=== PATIENT | female | born 1975 | race American Indian/Alaskan Native ===

== ENCOUNTER 2020-04-05 15:48 | Observation (INO) | payer MEDICAID ==
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
[2020-04-05 17:53] LABS: Basophils % (Auto) 0.1 % (0.0-1.8); Eosinophils % (Auto) 0.1 % (0.0-4.3); Hematocrit 24.1 % (30.3-42.9); Lymphocytes % (Auto) 23.2 % (13.4-35.0); Mean Corpuscular HGB Conc 33 % (30-34); Mean Corpuscular Volume 106 fl (79-97); Monocytes # (Auto) 0.5 K/mm3 (0.0-0.8); Monocytes % (Auto) 6.2 % (0.0-7.3); Platelet Count 247 K/mm3 (140-440); Red Blood Count 2.26 M/mm3 (3.65-5.03)
[2020-04-05 18:06] LABS: Red Cell Distribution Width 24.5 % (13.2-15.2)
[2020-04-05 18:19] LABS: Blood Urea Nitrogen 4 mg/dL (7-17); Calcium 6.1 mg/dL (8.4-10.2); Hemolysis Index 83
[2020-04-05 18:20] LABS: BUN/Creatinine Ratio 10
[2020-04-05] MEDS ORDERED: SODIUM CHLORIDE 0.9% 1000 ML 1,000 ML IV ONE (20:15)
[2020-04-05] MEDS ORDERED: CYCLOBENZAPRINE 10 MG TAB PO ONE (20:45)
[2020-04-06] MEDS ORDERED: SODIUM CHLORIDE 0.9% 1000 ML 1,000 ML ONE (01:34)
[2020-04-06] MEDS ORDERED: SODIUM CHLORIDE 0.9% 1000 ML 1,000 ML IV ONE (01:36)
[2020-04-06] MEDS ORDERED: ONDANSETRON 4 MG/2 ML INJ IV PRN (02:12)
[2020-04-06] MEDS ORDERED: MAGNESIUM HYDROXIDE (MOM) ORAL LIQD UDC PO PRN (02:12)
[2020-04-06] MEDS ORDERED: SODIUM CHLORIDE 0.9% 1000 ML 1,000 ML IV SCH (02:15)
--- NOTE | 2020-04-06 02:26 | History and Physical Report ---
History of Present Illness Date of examination: 04/06/20 Date of admission: 04/06/2020 Chief complaint: Dizziness and Fall History of present illness: 44-year-old female presenting to the emergency room today complaining of dizziness and subsequently having a fall to the ground earlier today. Patient denies any loss of consciousness and denies any head injury. Denies any fever or chills, no nausea vomiting, no diarrhea, no hematuria or dysuria. Patient was admitted to [facility] for similar episode about a week ago. She was said to have been anemic and received about 3 to 4 units of blood at that time. She also had a an EGD and also colonoscopy within the past 1 week and was said to be within normal limits. Patient was just discharged about 2 to 3 days ago. Patient however indicates that she has been having heavy menstrual periods and she is currently menstruating. She denies any history of uterine fibroid. She has not followed up with any wedger and gluer lately. Work-up in the emergency room today reveals hemoglobin of 8 and hematocrit of 24.1. She could have less stent while in the emergency room because of dizziness. Patient has been admitted for her dizziness with probable symptomatic anemia. Past History Past Medical History: other (Anemia) Past Surgical History: No surgical history Social history: smoking (Formaer smoker) Family history: other (Mother had Lung ca. Grand mother had D/Mellitus ) Medications and Allergies Allergies Allergy/AdvReac Type Severity Reaction Status Date / Time No Known Allergies Allergy Verified 04/06/20 01:37 Active Meds: Active Medications Acetaminophen (Tylenol) 650 mg PO Q4H PRN PRN Reason: Pain MILD(1-3)/Fever >100.5/PARDO Sodium Chloride (Nacl 0.9% 1000 Ml) 1,000 mls @ 999 mls/hr IV ONCE ONE Stop: 04/06/20 02:36 Last Admin: 04/06/20 01:42 Dose: 999 mls/hr Documented by: Sodium Chloride (Nacl 0.9% 1000 Ml) 1,000 mls @ 125 mls/hr IV DIRECT DIEGO Magnesium Hydroxide (Milk Of Magnesia) 30 ml PO Q4H PRN PRN Reason: Constipation Ondansetron HCl (Zofran) 4 mg IV Q8H PRN PRN Reason: Nausea And Vomiting Sodium Chloride (Sodium Chloride Flush Syringe 10 Ml) 10 ml IV BID DIEGO Sodium Chloride (Sodium Chloride Flush Syringe 10 Ml) 10 ml IV PRN PRN PRN Reason: LINE FLUSH Review of Systems Constitutional: no fever, no chills Ears, nose, mouth and throat: no nasal congestion, no sore throat Cardiovascular: no chest pain, no palpitations Respiratory: no cough, no shortness of breath Gastrointestinal: no abdominal pain, no nausea, no vomiting, no diarrhea, no coffee ground emesis, no BRBPR, no melena Genitourinary Female: menorrhagia, no pelvic pain, no dysuria, no hematuria Menstruation: period heavy Musculoskeletal: no neck pain, no low back pain Integumentary: no rash, no pruritis Neurological: no headaches, no confusion Psychiatric: no anxiety, no depression Exam - Constitutional Vitals: Temp Pulse Resp BP Pulse Ox 88 18 118/66 100 04/05/20 18:21 04/05/20 18:21 04/06/20 00:34 04/05/20 20:00 General appearance: Present: no acute distress, well-nourished, obese, other (Moderately pale) - EENT Eyes: Present: PERRL, EOM intact. Absent: scleral icterus ENT: hearing intact, clear oral mucosa, dentition normal - Neck Neck: Present: supple, normal ROM - Respiratory Respiratory effort: normal Respiratory: bilateral: CTA - Cardiovascular Rhythm: regular Heart Sounds: Present: S1 & S2, gallop. Absent: systolic murmur, diastolic murmur, rub - Extremities Extremities: no ischemia, pulses intact, pulses symmetrical, No edema, Full ROM Peripheral Pulses: within normal limits - Abdominal General gastrointestinal: Present: soft, non-tender, distended, normal bowel sounds. Absent: mass HEART Score - HEART Score Troponin: Troponin T < 0.010 ng/mL (0.00-0.029) 04/05/20 17:28 Results - Labs CBC & Chem 7: 04/05/20 17:28 04/05/20 17:28 Labs: Abnormal lab results 04/05/20 04/05/20 Range/Units 17:28 17:28 RBC 2.26 L (3.65-5.03) M/mm3 Hgb 8.0 L (10.1-14.3) gm/dl Hct 24.1 L (30.3-42.9) % MCV 106 H (79-97) fl MCH 35 H (28-32) pg RDW 24.5 H (13.2-15.2) % Seg Neutrophils % 70.4 H (40.0-70.0) % Sodium 129 L (137-145) mmol/L Chloride 93.2 L (98-107) mmol/L Carbon Dioxide 18 L (22-30) mmol/L BUN 4 L (7-17) mg/dL Creatinine 0.4 L (0.6-1.2) mg/dL Glucose 50 L (65-100) mg/dL Calcium 6.1 L (8.4-10.2) mg/dL Assessment and Plan - Patient Problems (1) Dizziness Current Visit: Yes Status: Acute Plan to address problem: Etiology is unclear however it may be secondary to the anemia. We will schedule patient for carotid Doppler and echocardiogram. (2) Symptomatic anemia Current Visit: Yes Status: Acute Plan to address problem: Will monitor CBC. We'll transfuse with packed red blood cells if needed. Recent EGD and colonoscopy done within the past week has been negative. Anemia may be as a result of heavy menstrual flow. We'll place a consult to gynecology for evaluation. Meanwhile we'll schedule patient for pelvic ultrasound for further evaluation. (3) DVT prophylaxis Current Visit: Yes Status: Acute Plan to address problem: Patient placed on sequential compression device. (4) Full code status Current Visit: Yes Status: Acute
[2020-04-06] MEDS: ACETAMINOPHEN 325 MG TAB PO PRN ×2 (10:31→18:09)
--- NOTE | 2020-04-06 10:46 | Discharge Summary ---
Providers - Providers Date of Admission: 04/06/20 01:57 Attending physician: KEYON MOHAN 04/06/20 02:12 Consult to Physician [CONS] Routine Comment: Consulting Provider: KELLEN GOODMAN JR Physician Instructions: Reason For Exam: Anemia,Menorrhagia Primary care physician: SALES COACH Hospitalization Condition: Fair Exam - Constitutional Vitals: Temp Pulse Resp BP Pulse Ox 97.9 F 98 H 20 108/30 99 04/06/20 07:33 04/06/20 07:33 04/06/20 07:33 04/06/20 07:33 04/06/20 07:33 Plan Follow up with: PRIMARY MD GABBI [Primary Care Provider] - 3-5 Days
--- NOTE | 2020-04-06 13:56 | Ultrasound Report ---
ULTRASOUND PELVIS INDICATION / CLINICAL INFORMATION: menorrhagia. TECHNIQUE: Transabdominal. Duplex Color Doppler used: Yes. COMPARISON: None available FINDINGS: UTERUS: Present. - Appearance (if present): No significant abnormality. - Size in cm (if present): 10.9 x 7.0 x 5.9. - Endometrial Complex (if present): No significant abnormality.. Thickness in cm (if measured) = 0.8 - Mass lesions: None. - Additional findings: None. RIGHT ADNEXA: There is a 4.5 cm simple cyst in the right ovary. Normal color Doppler blood flow. LEFT ADNEXA: No significant ovarian cyst or mass. Normal color Doppler blood flow. URINARY BLADDER: No significant abnormality. FREE FLUID: None. ADDITIONAL FINDINGS: None. IMPRESSION: 1. The uterus appears normal. 2. There is a 4.5 cm simple cyst in the right ovary. This does not require dedicated follow-up if the patient is premenopausal. Signer Name: Woody Salas MD Signed: 04/06/2020 1:52 PM Workstation Name: [id number]
--- NOTE | 2020-04-06 15:08 | Vascular Lab Report ---
"DUPLEX DOPPLER ULTRASOUND CAROTID, BILATERAL INDICATION: Dizziness and collapse. FINDINGS: RIGHT CAROTID: No significant atherosclerotic plaque. Right ICA peak systolic velocity: 120 cm/sec. Right Vertebral Artery: Antegrade flow. LEFT CAROTID: No significant atherosclerotic plaque. Left ICA peak systolic velocity: 77 cm/sec. Left Vertebral Artery: Antegrade flow. IMPRESSION: 1. Right Internal Carotid Artery: Less than 50% diameter stenosis. 2. Left Internal Carotid Artery: Less than 50% diameter stenosis. Velocity criteria are extrapolated from diameter data as defined by the Society of Radiologists in Ul trasound Consensus Conference, Radiology 2003; 229;340-346. Degree of Stenosis (%) || ICA PSV (cm/sec) || Plaque estimate (%) || ICA/CCA PSV Ratio Normal <125 None <2.0 <50 <125 <50 <2.0 50-69 125-230 50 2.0-4.0 70 but less than 100 >230 50 >4.0 Near occlusion High, low, or none visible variable Total occlusion None visible; no lumen N/A Signer Name: Isak Gastelum MD Signed: 04/06/2020 3:04 PM Workstation Name: [id number]
[2020-04-06 17:21] VITALS: BP 112/62
== END 2020-04-06 19:11 | disposition home or self-care (01) ==
LOC: ED 15:48 → 4A 04-06 01:57
PROVIDERS: ADMIT Internal Medicine Geriatric Medicine; ATTEND Internal Medicine
DX: R42 Dizziness and giddiness (principal); D64.9 Anemia, unspecified; I95.1 Orthostatic hypotension; Z87.891 Personal history of nicotine dependence; W19.XXXA Unspecified fall, initial encounter; Y93.89 Activity, other specified; Y92.89 Other specified places as the place of occurrence of the external cause; Y99.8 Other external cause status
CPT/HCPCS: 36415; 76856; 80048; 82962; 84484; 85025; 93005; 93880; 96360; 96361; 99284; G0378; J7030